=== PATIENT | female | born 1955 | race Caucasian/White ===

== ENCOUNTER 2020-11-02 15:35 | Emergency (ER) | payer OTHER ==
[2020-11-02 16:04] LABS: Absolute Lymphocytes (CBC) 2.2 K/uL (0.7-4.9); Basophils % 0.4 % (0-1.3); Hematocrit 38.5 % (36.0-45.0); Lymphocytes % 14.9 % (15.3-44.8); MPV 9.7 fL (7.6-11.3)
[2020-11-02 16:24] LABS: Potassium 3.9 mmol/L (3.5-5.1)
--- NOTE | 2020-11-02 16:31 | RAD REPORT ---
EXAM DESCRIPTION: CT - Head Brain Wo Cont - 11/02/2020 4:07 pm CLINICAL HISTORY: fall, head injury COMPARISON: <Comparisons> TECHNIQUE: Axial 5 mm thick images of the head were obtained without IV contrast. All CT scans are performed using dose optimization technique as appropriate and may include automated exposure control or mA/KV adjustment according to patient size. FINDINGS: No intracranial hemorrhage, mass, edema or shift of mid-line structures. No acute infarcti on changes seen. No cortical edema or sulcal effacement. Moderate atrophy is present with ventricles in proportion. Scattered chronic ischemic changes are present in the cerebral white matter, basal emily glia and thalamus. Brainstem chronic ischemic changes likely present as well. Arterial and physiologi c calcifications are present. Mastoid air cells and visualized portions of the paranasal sinuses are clear. No acute bony findings. IMPRESSION: No hemorrhage, edema or acute intracranial finding. Atrophy and chronic ischemic changes are present. Ventricles are in proportion to volume loss.
--- NOTE | 2020-11-02 18:03 | ER ---
Nurse's Notes [facility] Name: Kelly Morris Age: 65 yrs Sex: Female : 1955 Arrival Date: 11/02/2020 Time: 15:36 Bed 7 Private MD: Diagnosis: Hypoglycemia, unspecified;Urinary tract infection, site not specified Presentation: 11/02 15:47 Chief complaint: EMS states: EMS states patient has been having trouble with her ae4 blood sugar. Today FSBS was 38 and the previous day, she reports it was in the "400's". 15:47 Acuity: MIN 3 ae4 15:47 Method Of Arrival: EMS: [facility] ae4 17:44 Coronavirus screen: Client denies travel out of the [place] in the last 14 days. At this ae4 time, the client does not indicate any symptoms associated with coronavirus-19. Ebola Screen: Patient negative for fever greater than or equal to 101.5 degrees Fahrenheit, and additional compatible Ebola Virus Disease symptoms Patient denies exposure to infectious person. Patient denies travel to an Ebola-affected area in the 21 days before illness onset. Initial Sepsis Screen: Does the patient meet any 2 criteria? No. Patient's initial sepsis screen is negative. Does the patient have a suspected source of infection? No. Patient's initial sepsis screen is negative. Risk Assessment: Do you want to hurt yourself or someone else? Patient reports no desire to harm self or others. Onset of symptoms was October 31, 2020. Historical: - Allergies: 17:44 No Known Allergies; ae4 - Immunization history:: Adult Immunizations up to date. - Family history:: not pertinent. - Social history:: Smoking status: Patient denies any tobacco usage or history of. - Hospitalizations: : No recent hospitalization is reported. Screenin:47 Abuse screen: Denies threats or abuse. Nutritional screening: No deficits noted. em Tuberculosis screening: No symptoms or risk factors identified. Fall Risk None identified. Assessment: 16:10 General: Appears in no apparent distress. comfortable, Behavior is calm, cooperative, em appropriate for age. Pain: Denies pain. Neuro: Level of Consciousness is awake, alert, obeys commands, Oriented to person, place, situation. Cardiovascular: Capillary refill < 3 seconds Patient's skin is warm and dry. Respiratory: Airway is patent Respiratory effort is even, unlabored, Respiratory pattern is regular, symmetrical. GI: Reports vomiting. Derm: Skin is intact, is healthy with good turgor, Skin is pink, warm \\T\\ dry. Musculoskeletal: Capillary refill < 3 seconds, Range of motion: intact in all extremities. 17:07 Reassessment: Patient appears in no apparent distress at this time. Patient and/or em family updated on plan of care and expected duration. Pain level reassessed. Patient is alert, oriented x 3, equal unlabored respirations, skin warm/dry/pink. 17:42 Reassessment: [place] and snacks provided. ae4 18:42 Reassessment: Patient appears in no apparent distress at this time. Patient and/or ae4 family updated on plan of care and expected duration. Pain level reassessed. Patient states she feels better after eating as well. Now awaiting transport back to [facility]. Patient denies pain at this time. Patient states feeling better. Patient states symptoms have improved. 19:26 Reassessment: [facility] at bedside for transfer back to [facility] facility. lp1 Reassessment: Patient is alert and oriented x3, reports readiness for discharge. Vital Signs: 15:48 BP 131 / 90; Pulse 77; Resp 16; Temp 98.1; Pulse Ox 100% on R/A; Pain 0/10; ae4 16:21 BP 114 / 71; Pulse 70; Resp 16; Pulse Ox 95% on R/A; ae4 17:07 BP 112 / 53; Pulse 61; Resp 18; Pulse Ox 100% on R/A; em 19:27 BP 103 / 62; Pulse 73; Resp 18; Pulse Ox 95% on R/A; lp1 ED Course: 15:36 Patient arrived in ED. em1 15:39 Deangelo Mike MD is Attending Physician. rn 15:45 Inserted saline lock: 20 gauge in left antecubital area, using aseptic technique. Blood ae4 collected. 15:46 Den Murphy, DELFINA is Primary Nurse. em 15:48 Triage completed. ae4 16:07 CT Head Brain wo Cont In Process Unspecified. EDMS 16:22 Arm band placed on right wrist. ae4 16:22 Patient has correct armband on for positive identification. Placed in gown. Bed in low ae4 position. Call light in reach. Side rails up X2. Pulse ox on. NIBP on. Warm blanket given. 19:27 No provider procedures requiring assistance completed. IV discontinued, No lp1 redness/swelling at site. Pressure dressing applied. Administered Medications: 18:14 Drug: Cipro 500 mg Route: PO; ae4 Point of Care Testing: Blood Glucose: 15:48 Blood Glucose: 205 mg/dL; ae4 Ranges: Outcome: 18:03 Discharge ordered by . rn 19:28 Discharged to home via ambulance. lp1 19:28 Condition: good 19:28 Discharge instructions given to Report given by DELFINA Crenshaw to [facility] facility 19:28 Patient left the ED. lp1 Signatures: Dispatcher [employer] Den Mitchell, RN RN em Deangelo Mike MD MD rn Martinez, Eric em1 Bernadette Fabian RN RN lp1 Will Pack RN RN ae4 Corrections: (The following items were deleted from the chart) 18:43 17:50 Reassessment: ae4 ae4
--- NOTE | 2020-11-02 18:04 | EDPHYS ---
Physician Documentation [facility] Name: Kelly Morris Age: 65 yrs Sex: Female : 1955 Arrival Date: 11/02/2020 Time: 15:36 Bed 7 Private MD: ED Physician Deangelo Mike HPI: 11/02 15:46 This 65 yrs old Female presents to ER via Unassigned with complaints of low rn blood sugar. 15:46 The patient or guardian reports hypoglycemia. Onset: The symptoms/episode rn began/occurred today. Associated signs and symptoms: Pertinent positives: None. Pertinent negatives: constipation, decreased urine output, polyuria, seizure activity, urinary incontinence, vomiting. Current symptoms: In the emergency department the patient's symptoms have resolved. The patient has experienced similar episodes in the past. The patient has not recently seen a physician. Per EMS report, glucose was elevated yesterday, given basal levemir and regular insulin along with insulin sliding scale dosage, today noted to be in 30s, patient denies any symptoms, given glucose and now sugar in 150s, patient reports feels fine. [facility], seems to run high in evening and AM, then after medication has abrupt drop to 70s/80s, very consistent pattern when looking at documentation. . Historical: - Allergies: 17:44 No Known Allergies; ae4 - Immunization history:: Adult Immunizations up to date. - Family history:: not pertinent. - Social history:: Smoking status: Patient denies any tobacco usage or history of. - Hospitalizations: : No recent hospitalization is reported. ROS: 15:46 Constitutional: Negative for fever, chills, and weight loss, Eyes: Negative for injury, rn pain, redness, and discharge, Cardiovascular: Negative for chest pain, palpitations, and edema, Respiratory: Negative for shortness of breath, cough, wheezing, and pleuritic chest pain, Abdomen/GI: Negative for abdominal pain, nausea, vomiting, diarrhea, and constipation, Back: Negative for injury and pain, MS/Extremity: Negative for injury and deformity, Skin: Negative for injury, rash, and discoloration, Neuro: Negative for headache, weakness, numbness, tingling, and seizure, Endocrine: Negative for neck swelling, polydipsia, polyuria, polyphagia, and marked weight changes. Exam: 15:46 Constitutional: This is a well developed, well nourished patient who is awake, alert, rn and in no acute distress. Head/Face: Normocephalic, atraumatic. ENT: MMM Cardiovascular: Regular rate and rhythm. No pulse deficits. Respiratory: No increased work of breathing, no retractions or nasal flaring. Abdomen/GI: Soft, non-tender Skin: Warm, dry MS/ Extremity: Pulses equal, no cyanosis. Neurovascular intact. Full, normal range of motion. Equal circumference. Neuro: Awake and alert, GCS 15 Vital Signs: 15:48 BP 131 / 90; Pulse 77; Resp 16; Temp 98.1; Pulse Ox 100% on R/A; Pain 0/10; ae4 16:21 BP 114 / 71; Pulse 70; Resp 16; Pulse Ox 95% on R/A; ae4 17:07 BP 112 / 53; Pulse 61; Resp 18; Pulse Ox 100% on R/A; em 19:27 BP 103 / 62; Pulse 73; Resp 18; Pulse Ox 95% on R/A; lp1 MDM: 15:39 Patient medically screened. rn 18:00 Differential diagnosis: hypoglycemic episode, dehydration, UTI, kidney failure. Data rn reviewed: vital signs, nurses notes, lab test result(s), and as a result, I will discharge patient. Counseling: I had a detailed discussion with the patient and/or guardian regarding: the historical points, exam findings, and any diagnostic results supporting the discharge/admit diagnosis, lab results, the need for outpatient follow up, to return to the emergency department if symptoms worsen or persist or if there are any questions or concerns that arise at home. Response to treatment: the patient's symptoms have markedly improved after treatment, and as a result, I will discharge patient. Special discussion: I discussed with the patient/guardian in detail that at this point there is no indication for admission to the hospital. It is understood, however, that if the symptoms persist or worsen the patient needs to return immediately for re-evaluation. ED course: Glucose stable, tolerating PO, consistent pattern of hyperglycemia and rapid decreased after AM medication, needs more consistent basal insulin and regular eating schedule. 1+ leukocytes in urine, will dc with keith. . 11/02 15:45 Order name: CBC with Diff; Complete Time: 16:32 rn 11/02 15:45 Order name: Basic Metabolic Panel; Complete Time: 16:32 rn 11/02 15:58 Order name: Glucose, Ancillary Testing; Complete Time: 16:32 EDAR 11/02 17:27 Order name: Glucose, Ancillary Testing; Complete Time: 17:35 EDAR 11/02 17:57 Order name: Urine Dipstick--Ancillary (enter results) [facility] 11/02 15:45 Order name: IV Start; Complete Time: 15:47 rn 11/02 15:45 Order name: Urine Dipstick-Ancillary (obtain specimen); Complete Time: 17:56 rn 11/02 15:45 Order name: Glucose Level; Complete Time: 15:47 rn 11/02 15:55 Order name: CT Head Brain wo Cont; Complete Time: 16:32 rn Administered Medications: 18:14 Drug: Cipro 500 mg Route: PO; ae4 Point of Care Testing: Blood Glucose: 15:48 Blood Glucose: 205 mg/dL; ae4 Ranges: Critical Glucose Levels:Adult <50 mg/dl or >400 mg/dl <40 mg/dl or >180 mg/dl Disposition: 11/02/20 18:03 Discharged to Home. Impression: Hypoglycemia, unspecified, Urinary tract infection, site not specified. - Condition is Stable. - Discharge Instructions: Hypoglycemia, Urinary Tract Infection, Adult, Blood Glucose Monitoring, Adult. - Prescriptions for Cipro 500 mg Oral Tablet - take 1 tablet by ORAL route every 12 hours for 7 days; 14 tablet. - Medication Reconciliation Form, Thank You Letter, Antibiotic Education, Prescription Opioid Use form. - Follow up: Private Physician; When: As needed; Reason: Recheck today's complaints, Re-evaluation by your physician. - Problem is an ongoing problem. - Symptoms have improved. Signatures: Dispatcher [employer] EDMS Deangelo Mike MD MD rn Pena, Laura, RN RN lp1 Will Pack RN RN ae4 Corrections: (The following items were deleted from the chart) 19:28 18:03 11/02/2020 18:03 Discharged to Home. Impression: Hypoglycemia, unspecified; lp1 Urinary tract infection, site not specified. Condition is Stable. Forms are Medication Reconciliation Form, Thank You Letter, Antibiotic Education, Prescription Opioid Use. Follow up: Private Physician; When: As needed; Reason: Recheck today's complaints, Re-evaluation by your physician. Problem is an ongoing problem. Symptoms have improved. rn
[2020-11-02] MEDS ORDERED: CIPROFLOXACIN HCL 500 MG TAB ONE (18:28)
[2020-11-02 18:32] LABS: Urine Blood NEGATIVE (NEG); Urine Glucose 1+ (NEG); Urine Protein 1+ (NEG); Urine Specific Gravity 1.025 (1.005-1.030); Urine pH 5.5 (5.0-7.0)
[2020-11-02 19:34] VITALS: TEMP 98.1
[2020-11-02 19:38] VITALS: BP 103/62; O2SAT 95
== END 2020-11-02 19:28 | disposition home or self-care (01) ==
LOC: ER 15:35
DX: N39.0 Urinary tract infection, site not specified (principal)
CPT/HCPCS: 36415; 70450; 80048; 81003; 82947; 85025; 99284